=== PATIENT | female | born 1975 | race Caucasian/White ===

== ENCOUNTER 2016-07-26 00:37 | Emergency (ER) | payer MEDICAID | END 2016-07-26 04:08 | disposition PTX | LOC: D.ER 00:37 | DX: I46.9 Cardiac arrest, cause unspecified (principal); O75.89 Other specified complications of labor and delivery; Z3A.35 35 weeks gestation of pregnancy; Z37.1 Single stillbirth; O36.4XX0 Maternal care for intrauterine death, not applicable or unspecified ==